=== PATIENT | female | born 1995 | race Caucasian/White ===

== ENCOUNTER 2016-07-22 20:56 | Emergency (ER) | payer OTHER | END 2016-07-22 22:50 | disposition home or self-care (01) | LOC: ER 20:56 | DX: J03.90 Acute tonsillitis, unspecified (principal); B34.9 Viral infection, unspecified; Z79.899 Other long term (current) drug therapy; J45.909 Unspecified asthma, uncomplicated; E07.9 Disorder of thyroid, unspecified | CPT/HCPCS: 36415; 80053; 81001; 83690; 84703; 85025; 86403; 87804; 87880 ==

== ENCOUNTER 2016-07-31 00:33 | Emergency (ER) | payer OTHER | END 2016-07-31 01:49 | disposition home or self-care (01) | LOC: ER 00:33 | DX: M25.511 Pain in right shoulder (principal); Z79.899 Other long term (current) drug therapy; J45.909 Unspecified asthma, uncomplicated; E07.9 Disorder of thyroid, unspecified ==